=== PATIENT | male | born 1975 | race Caucasian/White ===

== ENCOUNTER 2020-02-11 22:42 | Emergency (ER) | payer BC ==
[~2020-02-11] VITALS: Ht 180.3 cm; Wt 115.9 kg
[2020-02-11] MEDS ORDERED: iohexol 300mg/ml 100ml inj. ONE (22:59)
--- NOTE | 2020-02-11 22:59 | NUR ---
SBAR to MD about the patient
[2020-02-11] MEDS ORDERED: morphine 4 MG/ML inj SYRINge IV PRN (23:00)
[2020-02-11] MEDS ORDERED: ondansetron/PF 4mg/2ml inj IV PRN (23:00)
--- NOTE | 2020-02-11 23:28 | NUR ---
Pt Girlfriend Sydney [[phone]
[2020-02-12] MEDS ORDERED: HYDR-3965 PO (00:02)
[2020-02-12] MEDS ORDERED: ONDA4TAB6 PO (00:02)
[2020-02-12] MEDS ORDERED: pantoprazole 40 MG vial IV ONE (00:10)
[2020-02-12] MEDS ORDERED: famotidine/PF 10 mg/ml inj IV ONE (00:10)
[2020-02-12 00:33] VITALS: BP 115/63
== END 2020-02-12 00:43 | disposition home or self-care (01) ==
LOC: ER 22:43
DX: S20.219A Contusion of unspecified front wall of thorax, initial encounter (principal); R07.89 Other chest pain; R20.8 Other disturbances of skin sensation; Z79.899 Other long term (current) drug therapy; S80.811A Abrasion, right lower leg, initial encounter; X58.XXXA Exposure to other specified factors, initial encounter; Y93.01 Activity, walking, marching and hiking; Y92.89 Other specified places as the place of occurrence of the external cause; Y99.8 Other external cause status
CPT/HCPCS: 71045; 71260; 74177; 93005; 96374; 96375; 99285; C9113; J2270; J2405; J3490; Q9967